=== PATIENT | male | born 1980 | race African-American/Black ===

== ENCOUNTER 2020-04-25 10:55 | Emergency (ER) | payer SELFPAY ==
[2020-04-25 11:07] VITALS: BP 114/78; PULSE 80; TEMP 98.1; BMI 20.3
--- NOTE | 2020-04-25 11:34 | PDOC ---
History of Present Illness - General Chief Complaint: Foreign Body (FB) Stated Complaint: COUGH Time Seen by Provider: 04/25/20 11:23 - History of Present Illness Initial Comments: 04/25/20 11:32 40-year-old male with reflux symptoms after Meals x1 year Past History - Medical History Allergies/Adverse Reactions: Allergies Allergy/AdvReac Type Severity Reaction Status Date / Time No Known Allergies Allergy Verified 04/25/20 11:04 Home Medications: Ambulatory Orders Pantoprazole Sodium [Protonix] 40 mg PO DAILY #10 tablet. 04/25/20 COPD: No Other medical history: DENIES - Immunization History Immunization Up to Date: No - Psycho-Social/Smoking History Smoking History: Never smoked - Substance Abuse Hx (Audit-C & DAST Scrn) How often the patient has a drink containing alcohol: Never Score: In Men: 4 or > Positive; In Women: 3 or > Positive: 0 Screen Result (Pos requires Nsg. Audit-10AR): Negative In the last yr the pt used illegal drug/Rx for NonMed reason: No Score: Yes response is considered Positive: 0 Screen Result (Positive result requires Nsg. DAST-10): Negative Review of Systems - Review of Systems Constitutional: No: Chills, Fever Respiratory: No: Cough ABD/GI: Yes: Indigestion. No: Constipated, Difficulty Swallowing, Nausea, Poor Appetite, Poor Fluid Intake, Vomiting, Abdominal cramping *Physical Exam - Vital Signs Last Vital Signs Temp Pulse Resp BP Pulse Ox 98.1 F 80 18 114/78 100 04/25/20 11:04 04/25/20 11:04 04/25/20 11:04 04/25/20 11:04 04/25/20 11:04 - Physical Exam General Appearance: Yes: Nourished, Appropriately Dressed. No: Apparent D istress HEENT: positive: Symmetrical Neck: positive: Supple Respiratory/Chest: positive: Normal Breath Sounds. negative: Respiratory Distress Musculoskeletal: positive: Normal Inspection Extremity: positive: Normal Inspection Neurologic: positive: taxicab dispatcher II-XII NML intact, Fully Oriented, Alert, Normal Mood/Affect Medical Decision Making - Medical Decision Making 04/25/20 11:33 We will start a course of Protonix and have patient follow-up with gastroenterology I have reviewed the pathophysiology with the patient. They are in agreement with the treatment plan all questions were answered to their satisfaction. Understanding for follow-up without fail was also conveyed to the patient. Again they are in agreement. Discharge - Discharge Information Problems reviewed: Yes Clinical Impression/Diagnosis: Chronic GERD Condition: Stable Disposition: HOME - Admission No - Additional Discharge Information Prescriptions: Pantoprazole Sodium [Protonix] 40 mg PO DAILY #10 tablet.dr - Follow up/Referral Referrals: David العلي MD [Staff Physician] - - Patient Discharge Instructions Additional Instructions: Please take the Protonix as directed and return to the emergency room for any further issues. Without fail follow-up with gastroenterology in 1 to 2 days for further evaluation and treatment options. - Post Discharge Activity
== END 2020-04-25 11:34 | disposition home or self-care (01) ==
LOC: JERFT 10:55
DX: K21.9 Gastro-esophageal reflux disease without esophagitis (principal)
CPT/HCPCS: 99283-25

== ENCOUNTER 2022-12-04 09:43 | Emergency (ER) | payer OTHER ==
[2022-12-04] MEDS ORDERED: ACETAMINOPHEN 500 MG TABLET (FP) PO ONE (10:04)
[2022-12-04] MEDS ORDERED: KETOROLAC TROMETHAMINE 15 MG/ML VIAL IM ONE (10:05)
[2022-12-04 10:16] VITALS: RESP 18; BMI 20.9
[2022-12-04] MEDS ORDERED: ACETAMINOPHEN 500 MG TABLET (FP) ONE (10:23)
[2022-12-04] MEDS ORDERED: KETOROLAC TROMETHAMINE 15 MG/ML VIAL ONE (10:23)
[2022-12-04 11:44] VITALS: BP 112/63; PULSE 65; TEMP 99.2
== END 2022-12-04 12:07 | disposition home or self-care (01) ==
LOC: JERFT 09:43
DX: R50.9 Fever, unspecified (principal); M79.10 Myalgia, unspecified site; R09.89 Other specified symptoms and signs involving the circulatory and respiratory systems; B34.9 Viral infection, unspecified; Z20.822 Contact with and (suspected) exposure to COVID-19
CPT/HCPCS: 0241U-QW; 99284-25

== ENCOUNTER 2023-08-06 09:47 | Emergency (ER) | payer OTHER ==
[2023-08-06 10:00] VITALS: BP 109/68; PULSE 52; RESP 17; TEMP 52; BMI 23.0
[2023-08-06] MEDS ORDERED: LACTATED RINGERS SOLUTION 1000 ML INFUS.BAG IV ONE (10:59)
[2023-08-06] MEDS ORDERED: ACETAMINOPHEN 1000 MG/100 ML BAG IVPB ONE (10:59)
[2023-08-06] MEDS ORDERED: METOCLOPRAMIDE HCL INJECTION 10 MG/2 ML VIAL IVPUSH ONE (10:59)
[2023-08-06] MEDS ORDERED: METOCLOPRAMIDE HCL INJECTION 10 MG/2 ML VIAL ONE (11:15)
[2023-08-06] MEDS ORDERED: ACETAMINOPHEN INJECTION 100 ML IVPB ONE (11:16)
[2023-08-06 11:59] LABS: BASO % 0.4 % (0-2.0); EOS % 1.8 % (0-4.5); HEMATOCRIT 45.2 % (35.4-49); HEMOGLOBIN 15.2 GM/dL (11.7-16.9); LYMPH % 35.9 % (8-40); MCH 28.2 pg (25.7-33.7); MCHC 33.6 g/dl (32.0-35.9); MEAN PLT VOLUME 10.6 fl (7.5-11.1); MONO % 9.8 % (3.8-10.2); NEUT % 52.1 % (42.8-82.8); PLATELET COUNT 189 10^3/uL (134-434); RBC 5.38 M/mm3 (4.00-5.60); RDW 14.1 % (11.9-15.9); WHITE BLOOD COUNT 4.9 K/mm3 (4.0-10.0)
[2023-08-06 12:25] LABS: POTASSIUM 3.9 mmol/L (3.5-5.1)
[2023-08-06 12:28] LABS: CALCIUM 9.2 mg/dL (8.5-10.1)
[2023-08-06 12:29] LABS: ALBUMIN 3.7 g/dl (3.4-5.0); BLOOD UREA NITROGEN 9.2 mg/dL (7-18)
[2023-08-06 12:34] LABS: BILIRUBIN,TOTAL 0.8 mg/dL (0.2-1); TOT PROT 7.5 g/dl (6.4-8.2)
[2023-08-06 13:11] LABS: HIV INTERPRETATION NEGATIVE (NEGATIVE)
== END 2023-08-06 13:58 | disposition home or self-care (01) ==
LOC: JER 09:47
PROC: 3E033NZ Introduction of Analgesics, Hypnotics, Sedatives into Peripheral Vein, Percutaneous Approach (ICD-10-PCS; principal; 2023-08-06)
PROC: 3E033GC Introduction of Other Therapeutic Substance into Peripheral Vein, Percutaneous Approach (ICD-10-PCS; 2023-08-06)
DX: R42 Dizziness and giddiness (principal); R51.9 Headache, unspecified; R53.81 Other malaise; R53.1 Weakness; Z20.822 Contact with and (suspected) exposure to COVID-19
CPT/HCPCS: 0241U-QW; 36415; 71045-TC-FY; 80053; 83735; 85025; 86705; 86707; 87340; 87350; 87389; 87517; 87522; 93005; 93010; 99285-25

== ENCOUNTER 2024-03-11 09:04 | Emergency (ER) | payer OTHER ==
[2024-03-11 09:07] VITALS: BP 122/75; PULSE 64; RESP 18; TEMP 98.2; BMI 24.4
== END 2024-03-11 10:58 | disposition home or self-care (01) ==
LOC: JERFT 09:04
DX: H92.01 Otalgia, right ear (principal); H60.91 Unspecified otitis externa, right ear; H73.91 Unspecified disorder of tympanic membrane, right ear
CPT/HCPCS: 99283-25